=== PATIENT | male | born 1945 | race Caucasian/White ===

== ENCOUNTER 2016-08-07 17:05 | Emergency (ER) | payer MEDICARE, OTHER ==
[~2016-08-07] VITALS: Ht 177.8 cm; Wt 81.8 kg
[2016-08-07 17:07] VITALS: BP 155/86; PULSE 57; RESP 22; O2SAT 98
[2016-08-07] MEDS ORDERED: FINA5TAB9 PO (17:11)
[2016-08-07] MEDS ORDERED: ASPI325T32 PO (17:11)
[2016-08-07] MEDS ORDERED: METO25TA99 PO (17:11)
[2016-08-07] MEDS ORDERED: TERA2CAP4 PO (17:11)
[2016-08-07] MEDS ORDERED: AMLO10TA3 PO (17:11)
--- NOTE | 2016-08-07 17:34 | ED.REPORT ---
HPI-General Illness Date of Service Aug 07, 2016 ED Provider: Paul Daniel DO 71 y/o male with a hx of HTN and kidney stones presents to the ED complaining of left flank pain, onset 3 days ago. The pt states the pain had subsided but returned today. He was told by his urologist in [place] that he has kidney stones and should get them checked once he returns. He denies abdominal pain and dysuria. He took an Ibuprofen with some relief. The pt has had similar sx before. He takes Aspirin every day. Nursing Notes Stated Complaint: KIDNEY STONE Chief Complaint: Male Abdominal Pain Nursing Notes Reviewed: Yes Allergies: Coded Allergies: No Known Allergies (Unverified , 08/07/16) Scheduled Amlodipine (Amlodipine) 10 Mg Tablet 10 MG PO DAILY Aspirin (Aspirin) 325 Mg Tablet 325 MG PO HS Finasteride (Finasteride) 5 Mg Tablet 5 MG PO DAILY Metoprolol Succinate ER (Metoprolol Succinate ER) 25 Mg Tab.er.24h 25 MG PO DAILY Terazosin (Terazosin) 2 Mg Capsule 2 MG PO HS Scheduled PRN Tramadol (Tramadol) 50 Mg Tablet 50 MG PO Q4H PRN PRN For Pain General Time Seen by MD: 17:22 Chief Complaint Other (left flank pain) Hx Obtained From: Patient Arrived By: Walk-in Sudden in Onset?: Yes Onset Occurred: 3 days ago Symptom Duration: Intermittent Quality: Painful Severity: Current: Moderate Severity: Maximum: Severe Recent Healthcare: Recent doctor visit Similar Sx Previous: Yes Past Medical History Past Medical History Kidney stones Reports: Hypertension Past Surgical History none reported Smoking History Never Smoker Social History Alcohol Use: Denies alcohol use Drug Use: Denies drug use Other Social History: Good social support, From out of town, Visiting locally Ambulatory Status Independent Review of Systems Full Review of Systems GI: Reports: Abdominal pain Male: Reports Flank pain (Left), Denies Dysuria Complete sys rev & neg: except as marked. Physical Exam Vital Signs Vital Signs Date Time Temp Pulse Resp B/P Pulse Ox O2 Delivery O2 Flow Rate FiO2 08/07/16 17:07 36.8 57 22 155/86 98 Room Air Initial VS: Reviewed, Vital signs normal Head / Eyes: Atraumatic, Normocephalic Neck: Full range of motion Extremities: Vascular intact, Neuro intact, No swelling, No tenderness Skin: Warm, Dry, No cyanosis Neurologic: Alert, Oriented, Nonfocal General/Constitutional: Awake, Alert, No acute distress, Cooperative Respiratory / Chest: Atraumatic, Breath sounds NL, Breath sounds = bilat, No respiratory distress, No rales, No rhonchi, No wheezing Cardiovascular: Heart rate NL, Regular rhythm, Heart sounds NL, No gallop, No murmurs, No rubs Abdomen: Atraumatic, Soft, Non-tender Back: Atraumatic, Full range of motion Interpretation & Diagnostics PROCEDURE: CT KUB ([id number]) IMPRESSION: 1. A 4 mm of obstructing left UVJ stone with mild left hydronephrosis and hydroureter. 2. Bilateral renal calculi as described. 3. Enlarged prostate. 4. Extensive sigmoid diverticulosis. No diverticulitis. 5. Small hiatal hernia. Dictated by: Wilbur Jeff M.D. on 08/07/2016 at 18:09 Approved by: Wilbur Jeff M.D. on 08/07/2016 at 18:16 Lab Results Interpretation Test 08/07/16 17:38 Hold Urine Received (Received) Urine shows trace leukocytes and moderate blood. Re-Eval/Medical Decision Med Decision/Clinical Course Patient presents with pain similar to prior kidney stones, CT reveals a 4 mm stone at the UVJ with mild hydro- nephrosis. His pain is Well-controlled; he is afebrile, his urinalysis does not reveal urinary tract infection. He is stable for discharge. Recommend low-dose naproxen and tramadol for breakthrough pain. Patient is given strict return and follow-up precautions. Time of Eval: 18:20 Patient Status: Mild relief Re-Evaluation/Progress Note: Rechecked pt. Discussed imaging results and diagnosis. All questions answered. Counseled Regarding: Diagnosis, Lab results, Need for follow-up, When/why to return to ED Discharge & Departure Primary Impression: Ureterolithiasis Disposition: Home Discharge Condition All VS Reviewed: Yes Condition: Stable Additional Instructions: Thank you for entrusting us with your care today. Your CT scan shows kidney stones. Take Naproxen and tramadol as prescribed for pain. Follow up with Shani Lee, Urologist :- [id number] [id number] Return to the emergency department in case of new or worsening symptoms. Referrals: Shani Santoyo MD [facility] Attestation Portions of this note were transcribed by Randy Batres. I, , personally performed the history, physical exam and medical decision-making;I reviewed and confirmed the accuracy of the information in the transcribed note. Signed by Soraya Pardo. 08/07/16 18:36 copies to: Shani Santoyo MD, Timothy Landry SIMPSON Aug 07, 2016 17:34 Randy Batres Aug 07, 2016 18:06
--- NOTE | 2016-08-07 18:18 | DRSVH ---
PROCEDURE: CT KUB ([id number]) INDICATIONS: flank pain h/o kidney stones TECHNIQUE: Noncontrast 5 mm thick sections acquired from the diaphragms to the symphysis. 5 mm thick coronal an d sagittal reformats were then performed. For radiation dose reduction, the following was used: aut omated exposure control, adjustment of mA and/or kV according to patient size. COMPARISON: None. FINDINGS: Image quality: Excellent. Lung bases: Lung bases are clear. Heart size is normal. There is a small hiatal hernia. Urinary system: There is a 4 mm stone at the left UVJ with CT density 322 HU, most likely a uric aci d stone. There is mild left hydronephrosis and hydroureter. Bilateral renal calculi are present, 3 on the left measuring up to 5 mm, and 1 on the right measuring 4 mm. No right hydronephrosis. Both kidn eys are normal in size. There is mild left perinephric fat stranding. Bladder wall thickness is norm al; no calcified bladder stones. Prostate is enlarged. Other solid organs: Liver and spleen are normal in size. Gallbladder is normal. Pancreas is normal in contours. No adrenal nodules. Peritoneum and bowel: Unenhanced bowel loops demonstrate normal wall thickness and caliber. There a re numerous sigmoid diverticula. No evidence for active diverticulitis. No free fluid or air. Nodes and vessels: No retroperitoneal or mesenteric adenopathy by size criteria. Aorta and inferior vena cava are normal in caliber. Abdominal wall: No ventral hernias. Pelvis: No free pelvic fluid. No inguinal hernias or adenopathy. Bones: No suspicious bony lesions. No vertebral body compression fractures. IMPRESSION: 1. A 4 mm of obstructing left UVJ stone with mild left hydronephrosis and hydroureter. 2. Bilateral renal calculi as described. 3. Enlarged prostate. 4. Extensive sigmoid diverticulosis. No diverticulitis. 5. Small hiatal hernia. Dictated by: Wilbur Jeff M.D. on 08/07/2016 at 18:09 Approved by: Wilbur Jeff M.D. on 08/07/2016 at 18:16
[2016-08-07] MEDS ORDERED: TRAM50TA2 PO (18:41)
[2016-08-07 18:47] VITALS: BP 145/70; PULSE 51; O2SAT 94
== END 2016-08-07 18:47 | disposition home or self-care (01) ==
LOC: SED 17:05
DX: N20.1 Calculus of ureter (principal); I10 Essential (primary) hypertension; Z79.82 Long term (current) use of aspirin